=== PATIENT | female | born 1985 | race African-American/Black ===

== ENCOUNTER 2018-07-31 21:22 | Emergency (ER) | payer SELFPAY ==
[~2018-07-31] VITALS: Ht 162.6 cm; Wt 68.1 kg
[~2018-07-31 21:22] MED LIST: AMOXICILLIN500 MG OR; AMOXICILLIN500 MG PO; AMOXICILLIN875 MG PO; AUGMENTIN500TAB PO; CEPHALEXIN500 MG PO; CIPROFLOXACN500 MG PO; CORTISPORIN OTI10 ML AD; DENIES CURRENT MEDS; FLEXERIL OR; FLEXERIL PO; HYDROCO/APAP1 TA9 PO; LORTAB 1010 MG PO; LORTAB 5 OR; MEDDOSEPAK PO; NAPROSYN500 MG OR; NO; NO CURRENT MEDS; NO HOME MEDS; ONDANSETRON4 MG PO; PENICILLN VK500 MG PO; SILVADENE1 % EX; STERAPRED DS10 MG PO; TRAMADOL HCL50 MG PO; ULTRAM50 M1 PO; ULTRAM50 MG OR; ULTRAM50 MG PO; ZOFRAN ODT8 MG SL
[2018-07-31 21:57] LABS: URINE BILIRUBIN - DIPSTICK NEGATIVE (NEGATIVE); URINE BLOOD DIPSTICK SMALL (NEGATIVE); URINE COLOR YELLOW; URINE GLUCOSE - DIPSTICK NEGATIVE (NEGATIVE); URINE KETONE NEGATIVE (NEGATIVE); URINE LEUK ESTERASE NEGATIVE (NEGATIVE); URINE NITRITE - DIPSTICK NEGATIVE (Negative); URINE PROTEIN - DIPSTICK NEGATIVE (NEG-TRACE)
[2018-07-31 22:02] LABS: HEMATOCRIT 29.8 % (37.0-47.0); HEMOGLOBIN 10.9 g/dl (12.0-16.0); IMMATURE GRANULOCYTES 0.3 % (0.0-5.0); MEAN CELL VOLUME 81.2 fL CALC (80.0-100.0); MEAN CORPUSCULAR HGB 29.7 pG CALC (26.0-32.0); MEAN CORPUSCULAR HGB CONC 36.6 g/L CALC (32.0-36.0); NEUT# 4.46 thou/uL (2.00-7.15); RED BLOOD COUNT 3.67 mill/uL (4.20-5.60); RED CELL DISTRI WIDTH 14.2 % (11.5-15.5)
[2018-07-31 22:03] LABS: BARBITURATES NEGATIVE (NEGATIVE); COCAINE NEGATIVE (NEGATIVE); METHADONE NEGATIVE (NEGATIVE); TETRAHYDROCANNABIONOL POSITIVE (NEGATIVE); TRICYLIC ANTIDEPRESSANTS NEGATIVE (NEGATIVE)
[2018-07-31 22:04] LABS: OXCYCODONE NEGATIVE (NEGATIVE)
[2018-07-31 22:06] LABS: URINE SQUAMOUS EPITHELIAL CELL FEW EPI/hpf (0-FEW)
[2018-07-31 22:16] LABS: ALBUMIN 3.7 g/dL (3.2-5.0); ALKALINE PHOSPHATASE 88 u/l (38-126); ANION GAP 10 (6-22 (CALC)); BILIRUBIN, TOTAL 0.5 mg/dL (0.0-1.4); BUN 12 mg/dL (7-17); BUN/CREATININE RATIO 16 (12-20 (CALC)); CARBON DIOXIDE 28 mmol/l (22-30); CHLORIDE 107 mmol/l (95-108); CREATININE 0.8 mg/dL (0.5-1.0); GFR > 60 ML/MIN (>=60 (CALC)); GFR FOR AFR.AMER. > 60 ML/MIN (>=60 (CALC)); POTASSIUM 3.3 mmol/l (3.5-5.1); SGOT/AST 32 u/l (14-36); SODIUM 141 mmol/l (137-146); TOTAL PROTEIN 7.1 g/dL (6.3-8.2)
[2018-07-31 22:28] LABS: MYOGLOBIN 41 ng/mL (0 - 62)
[2018-07-31] MEDS ORDERED: TORADOL PO (22:38)
[2018-07-31] MEDS ORDERED: ANTIVERT PO (22:38)
[2018-07-31 22:58] VITALS: BP 98/63
== END 2018-07-31 22:58 | disposition home or self-care (01) | DRG 206 ==
LOC: ED 21:22
PROVIDERS: Family Medicine
DX: M94.0 Chondrocostal junction syndrome [Tietze] (principal); R42 Dizziness and giddiness; F17.210 Nicotine dependence, cigarettes, uncomplicated

== ENCOUNTER 2019-02-22 20:16 | Emergency (ER) | payer SELFPAY ==
[~2019-02-22] VITALS: Ht 165.1 cm; Wt 72.7 kg
[~2019-02-22 20:16] MED LIST changes: +ANTIVERT PO; +TORADOL PO
[2019-02-22] MEDS ORDERED: VOLTAREN - GENE75 MG PO (21:46)
[2019-02-22 21:55] VITALS: BP 114/73
== END 2019-02-22 21:55 | disposition home or self-care (01) | DRG 558 ==
LOC: ED 20:16
DX: M75.22 Bicipital tendinitis, left shoulder (principal); M75.42 Impingement syndrome of left shoulder; M25.512 Pain in left shoulder

== ENCOUNTER 2019-08-30 | Emergency (ER) | payer SELFPAY ==
[~2019-08-30] MED LIST changes: +VOLTAREN - GENE75 MG PO
[2019-08-30] MEDS ORDERED: AMOXICILLIN500 MG PO (11:01)
[2019-08-30] MEDS ORDERED: TAM75CAP PO (11:01)
== END 2019-08-30 11:10 | disposition home or self-care (01) | DRG 153 ==
DX: J11.1 Influenza due to unidentified influenza virus with other respiratory manifestations (principal)

== ENCOUNTER 2021-03-31 13:44 | Emergency (ER) | payer SELFPAY ==
[~2021-03-31 13:44] MED LIST changes: +TAM75CAP PO
== END 2021-03-31 14:45 | disposition left against medical advice (07) | DRG 951 ==
LOC: ED 13:44 → LWOBS 14:45
DX: Z53.21 Procedure and treatment not carried out due to patient leaving prior to being seen by health care provider (principal)

== ENCOUNTER 2022-02-07 20:27 | Emergency (ER) | payer SELFPAY ==
[~2022-02-07] VITALS: Ht 165.1 cm; Wt 68.0 kg
[2022-02-07 20:37] VITALS: BP 82/68
[2022-02-07 20:49] LABS: HEMATOCRIT 34.6 % (37.0-47.0); HEMOGLOBIN 12.4 g/dl (12.0-16.0); IMMATURE GRANULOCYTES 0.2 % (0.0-5.0); MEAN CELL VOLUME 83.4 fL CALC (80.0-100.0); MEAN CORPUSCULAR HGB 29.9 pG CALC (26.0-32.0); MEAN CORPUSCULAR HGB CONC 35.8 g/dL CAL (32.0-36.0); NEUT# 3.05 thou/uL (2.00-7.15); RED BLOOD COUNT 4.15 mill/uL (4.20-5.60); RED CELL DISTRI WIDTH 13.8 % (11.5-15.5)
[2022-02-07 21:01] VITALS: BP 158/73
[2022-02-07 21:04] LABS: ALBUMIN 4.1 g/dL (3.2-5.0); ALKALINE PHOSPHATASE 78 u/l (38-126); AMYLASE 76 u/l (30-110); ANION GAP 7 (6-22 (CALC)); BILIRUBIN, TOTAL 0.3 mg/dL (0.0-1.4); BUN 9 mg/dL (7-17); BUN/CREATININE RATIO 11 (12-20 (CALC)); CARBON DIOXIDE 28 mmol/l (22-30); CHLORIDE 108 mmol/l (95-108); CREATININE 0.9 mg/dL (0.5-1.0); GFR FOR AFR.AMER. > 60 ML/MIN (>=60 (CALC)); GFR OTHER RACES > 60 ML/MIN (>=60 (CALC)); LIPASE 26 u/l (23-300); SGOT/AST 19 u/l (14-36); SODIUM 139 mmol/l (137-146); TOTAL PROTEIN 7.7 g/dL (6.3-8.2)
[2022-02-07 21:15] VITALS: BP 162/95
[2022-02-07 21:15] LABS: MYOGLOBIN 20 ng/mL (0 - 62)
[2022-02-07 21:17] LABS: D-DIMER 0.59 mg/L (0.19-0.60)
[2022-02-07 21:23] LABS: INTERNATIONAL NORMALIZED RATIO 1.1 RATIO (0.7-1.3)
[2022-02-07 21:32] VITALS: BP 133/97
[2022-02-07 23:09] LABS: URINE BILIRUBIN - DIPSTICK NEGATIVE (NEGATIVE); URINE BLOOD DIPSTICK LARGE (NEGATIVE); URINE COLOR YELLOW; URINE GLUCOSE - DIPSTICK NEGATIVE (NEGATIVE); URINE KETONE TRACE mg/dL (NEGATIVE); URINE LEUK ESTERASE NEGATIVE (NEGATIVE); URINE PH 8.5 (4.5-8.0); URINE PROTEIN - DIPSTICK NEGATIVE (NEG-TRACE); URINE SPECIFIC GRAVITY 1.015
[2022-02-07 23:11] VITALS: BP 123/71
[2022-02-07 23:16] LABS: URINE NITRITE - DIPSTICK NEGATIVE (Negative)
[2022-02-07 23:28] LABS: URINE AMORPH SEDIMENT MANY hpf (NONE-FEW); URINE BACTERIA FEW hpf; URINE SQUAMOUS EPITHELIAL CELL FEW EPI/hpf (0-FEW); URINE WBC 0-2 WBC/hpf (0-5)
[2022-02-07 23:31] VITALS: BP 140/94
[2022-02-08 00:11] VITALS: BP 98/57
[2022-02-08 00:30] VITALS: BP 97/60
[2022-02-08] MEDS ORDERED: LORTAB 5/3255 MG PO (00:52)
[2022-02-08] MEDS ORDERED: TAMSULOSIN0.4 MG PO (00:52)
[2022-02-08 01:00] VITALS: BP 93/57
[2022-02-08 01:30] VITALS: BP 85/52
[2022-02-08 02:40] VITALS: BP 85/52
== END 2022-02-08 02:45 | disposition home or self-care (01) | DRG 694 ==
LOC: ED 20:27
PROVIDERS: Family Medicine
DX: N13.2 Hydronephrosis with renal and ureteral calculous obstruction (principal); Z87.442 Personal history of urinary calculi

== ENCOUNTER 2022-08-15 00:39 | Emergency (ER) | payer SELFPAY ==
[~2022-08-15] VITALS: Ht 165.1 cm; Wt 68.2 kg
[~2022-08-15 00:39] MED LIST changes: +LORTAB 5/3255 MG PO; +TAMSULOSIN0.4 MG PO
[2022-08-15 00:47] VITALS: BP 144/83
[2022-08-15 01:00] VITALS: BP 150/83
[2022-08-15 01:28] LABS: BASO% 0.2 % (0-3); EOS% 1.7 % (0-8); HEMATOCRIT 31.8 % (37.0-47.0); HEMOGLOBIN 11.8 g/dl (12.0-16.0); IMMATURE GRANULOCYTES 0.5 % (0.0-5.0); MEAN CELL VOLUME 82.2 fL CALC (80.0-100.0); MEAN CORPUSCULAR HGB 30.5 pG CALC (26.0-32.0); MEAN CORPUSCULAR HGB CONC 37.1 g/dL CAL (32.0-36.0); MONO% 6.4 % (2-13); NEUT# 5.68 thou/uL (2.00-7.15); NEUT% 66.2 % (42-76); RED BLOOD COUNT 3.87 mill/uL (4.20-5.60); RED CELL DISTRI WIDTH 13.8 % (11.5-15.5)
[2022-08-15 01:42] LABS: ALKALINE PHOSPHATASE 80 u/l (38-126); ANION GAP 8 (6-22 (CALC)); BILIRUBIN, TOTAL 0.2 mg/dL (0.0-1.4); BUN 13 mg/dL (7-17); BUN/CREATININE RATIO 13 (12-20 (CALC)); CARBON DIOXIDE 29 mmol/l (22-30); CHLORIDE 106 mmol/l (95-108); ETHYL ALCOHOL 0 mg/dl (0-30); GFR FOR AFR.AMER. > 60 ML/MIN (>=60 (CALC)); GFR OTHER RACES > 60 ML/MIN (>=60 (CALC)); LIPASE 27 u/l (23-300); POTASSIUM 3.6 mmol/l (3.5-5.1); SGOT/AST 26 u/l (14-36); SODIUM 139 mmol/l (137-146); TOTAL PROTEIN 7.5 g/dL (6.3-8.2)
[2022-08-15 01:45] VITALS: BP 167/105
[2022-08-15 02:00] VITALS: BP 143/91
[2022-08-15 02:15] VITALS: BP 108/73
[2022-08-15 02:51] LABS: URINE BILIRUBIN - DIPSTICK NEGATIVE (NEGATIVE); URINE BLOOD DIPSTICK LARGE (NEGATIVE); URINE COLOR RED; URINE GLUCOSE - DIPSTICK NEGATIVE (NEGATIVE); URINE KETONE TRACE mg/dL (NEGATIVE); URINE PH 6.5 (4.5-8.0); URINE PROTEIN - DIPSTICK 30 mg/dL (NEG-TRACE); URINE SPECIFIC GRAVITY 1.025
[2022-08-15 02:55] LABS: URINE NITRITE - DIPSTICK NEGATIVE (Negative)
[2022-08-15 02:56] LABS: URINE LEUK ESTERASE NEGATIVE (NEGATIVE)
[2022-08-15 02:58] LABS: URINE EPITHELIAL CELLS FEW EPI/hpf (0-FEW); URINE RBC >100 RBC/hpf (0-5)
[2022-08-15 02:59] LABS: URINE BACTERIA MODERATE hpf
[2022-08-15 05:58] VITALS: BP 108/73
== END 2022-08-15 06:18 | disposition home or self-care (01) | DRG 694 ==
LOC: ED 00:39
PROVIDERS: Family Medicine
DX: N20.1 Calculus of ureter (principal); N23 Unspecified renal colic